=== PATIENT | male | born 1975 | race Caucasian/White ===

== ENCOUNTER 2023-02-13 12:52 | Outpatient (CLI) | payer OTHER, SELFPAY ==
--- NOTE | ~2023-02-13 | XR_ITS ---
EXAMINATION: XR abdomen/kub 1V DATE: 02/13/2023 13:11 INDICATION: Constipation TECHNIQUE: A supine view of the abdomen on 2 radiographs was obtained. COMPARISON: None. FINDINGS: Moderate amount of stool scattered throughout the colon. Surgical clip and suture line near the tip t he cecum likely related to prior appendectomy. No dilated loops of gas-filled bowel to suggest obstru ction. There are few phleboliths in the pelvis. Lung bases are clear. Heart size is normal. Moderate lumbar spondylosis. IMPRESSION: 1. Moderate amount of colonic stool. Reviewed, dictated and finalized at location A. CODER
--- NOTE | ~2023-02-13 | XR_ITS ---
EXAMINATION: XR lumbar spine 2-3V DATE: 02/13/2023 13:11 INDICATION: Low back pain, unspecified. TECHNIQUE: 3 views of lumbar spine were obtained. COMPARISON: None. FINDINGS: There is 4 degrees dextrocurvature of lumbar spine. There is mild anterior wedging of L1 ve rtebral body. There is moderately decreased disc height at L4-L5. There are endplate osteophytes at m ultiple levels. There is multilevel mild facet joint osteoarthritis. IMPRESSION: 1. Moderate lumbar spondylosis. 2. Mild anterior wedging of L1 vertebral body, which may be an acute compression fracture or a chroni c finding. Reviewed, dictated and finalized at location E. [facility] [employer] [employer] IMPRESSION: 1. Moderate lumbar spondylosis. 2. Mild anterior wedging of L1 vertebral body, which may be an acute compressio n fracture or a chronic finding.
[2023-02-13 19:27] LABS: Hematocrit 46.6 % (42.0-52.0); Mean Corpuscular HGB Conc 32.2 g/dl (32-36); Mean Corpuscular Hemoglobin 28.8 pg (26-34); Mean Corpuscular Volume 89.6 fl (80-100); Mean Platelet Volume 10.4 fl (7.4-10.4); Platelet Count Result 228 k/mm3 (150-375); Red Cell Distribution Width 12.6 % (11.5-14.5); White Blood Count 7.2 K/mm3 (4.5-10.0)
[2023-02-13 20:54] LABS: Appearance Urine Clear (Clear); Bilirubin Urine Negative (Negative); Blood Urine Negative (Negative); Color Urine Yellow (Yellow); Glucose Urine UA Negative (Negative); Ketones Urine Negative (Negative); Leukocyte Esterase Ur Negative LEU/UL (NEGATIVE); Nitrate Urine Negative (Negative); Protein Urine Negative (Negative); Specific Grav Ur 1.004 (1.001-1.035); Urobilinogen Urine 0.2 mg/dL (<2.0); pH Urine 5.5 (5.0-9.0)
[2023-02-13 21:04] LABS: Add Urine Microscopic? NO
[2023-02-13 21:08] LABS: Alanine Aminotransferase 24 U/L (6-50); Albumin Level 4.6 g/dL (3.5-5.1); Alkaline Phosphatase 86 U/L (38-126); Anion Gap 8 mmol/L (8-16); Aspartate Amino Transferase 39 U/L (17-59); Blood Urea Nitrogen 12 mg/dL (9-20); Calcium 9.1 mg/dL (8.4-10.2); Carbon Dioxide 28 mmol/L (22-30); Chloride 100 mmol/L (98-107); Cholesterol 194 mg/dL (0-200); Estimated Glomerular Filt Rate > 60; Glucose 87 mg/dL (65-110); HDL Direct 42 mg/dL; Potassium 3.8 mmol/L (3.4-5.0); Sodium 136 mmol/L (137-145); Triglycerides 88 mg/dL (<150)
[2023-02-13 21:25] LABS: LDL Cholesterol Direct 113 mg/dL
[2023-02-13 21:54] LABS: Prostate Specific Antigen 1.1 ng/mL (< OR = 4.0)
== END 2023-02-13 12:53 | disposition home or self-care (01) ==
LOC: ANHBWCIMG 14:40 → ANHBWCLAB 14:59
PROVIDERS: PCP Nurse Practitioner Adult Health; Visit Provider Nurse Practitioner Adult Health
DX: Z00.00 Encounter for general adult medical examination without abnormal findings (principal); K59.00 Constipation, unspecified; R35.0 Frequency of micturition; N40.1 Benign prostatic hyperplasia with lower urinary tract symptoms; M47.896 Other spondylosis, lumbar region
CPT/HCPCS: 36415; 72100; 74018; 80053; 80061; 81003; 84153; 85027